=== PATIENT | female | born 1980 | race Two or more races ===

== ENCOUNTER 2025-04-07 17:51 | Emergency (ER) | payer MEDICAID, SELFPAY ==
[2025-04-07 18:04] VITALS: BP 156/90; PULSE 77; RESP 18; TEMP 36.8; O2SAT 99; BMI 21.9
--- NOTE | 2025-04-07 18:25 | EKG_ITS ---
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
--- NOTE | 2025-04-07 18:53 | XR_ITS ---
EXAMINATION: PA chest single view TECHNIQUE: Upright PA chest single view Date and time: April 07, 2025, 1944 hours INDICATIONS: Shortness of breath and syncopal episode today. FINDINGS: Normal heart size. Lungs are clear. Osseous structures are intact IMPRESSION: No active disease
--- NOTE | 2025-04-07 18:56 | EDNOTE_ITS ---
ED SOB =RME/HPI General Chief Complaint: Shortness of Breath/Dyspnea Stated Complaint: SOB, FELT FAINT EARLIER, HANDS TINGLING Time Seen by Provider: 04/07/25 18:53 Arrival date/time: 04/07/25 17:51 44F with history of unknown heart valve prolapse (does not see cards regularly or had any interventions) presents to ED with several episodes today of intermittent SOB, lightheadedness and bilateral hands tingling. Patient denies URI symptoms and anxiety/drug use. Limitations: no limitations Related Data Previous Rx's ?Medication ?Instructions ?Recorded carisoprodol 350 mg tablet 350 mg PO TID PRN MUSCLE SP ASMS 09/07/16 #15 tabs ibuprofen 600 mg tablet 600 mg PO Q6HR PRN PAIN #40 tabs 09/07/16 amoxicillin 875 mg-potassium 1 tab PO Q12H #14 tabs clavulanate 125 mg tablet (Augmentin) rizatriptan 10 mg tablet (Maxalt) 10 mg PO Q2H PRN cecile gabriella headache 04/16/21 #20 tabs Allergies Allergy/AdvReac Type Severity Reaction Status Date / Time No Known Allergies Allergy Verified 04/07/25 17:53 Review of Systems Review of Systems Systems Reviewed: All systems reviewed, normal except as documented ENT Ears, Nose, Mouth, and Throat: Reports as per HPI and Reports other (lightheadedness) Cardiovascular Cardiovascular: Reports dyspnea Respiratory Respiratory: Reports as per HPI and Reports dyspnea Musculoskeletal Musculoskeletal: Reports tingling Neurologic Neurologic: Reports as per HPI and Reports tingling Past Medical History Past Medical History OTHER HISTORY: Negative Blood Transfusions Social History SMOKING STATUS: Never smoker SUBSTANCE USE: does not use ED Exam General Limitations: Present no limitations General appearance: Present alert and in no apparent distress Head Head exam: Present atraumatic Eye Eye exam: Present normal appearance and EOMI Neck Neck exam: Present normal inspection, full ROM and trachea midline Chest Chest inspection: Present normal inspection and symmetric chest wall rise Respiratory Respiratory exam: Present normal lung sounds bilaterally Cardiovascular Cardiovascular exam: Present regular rate, normal rhythm and normal heart sounds Neurological Exam Neurological exam: Present alert and oriented X3 Psychiatric Psychiatric exam: Present normal affect and normal mood Skin Skin exam: Present warm, dry, intact and normal color Course Quality Measures none Orders Category Date Time Status EKG (ED ONLY) *Do not use* NOW Care 04/07/25 18:25 Completed EKG (ED Only) Stat Exams 04/07/25 18:25 Draft XR chest 1V portable Stat Exams 04/07/25 18:53 Completed B-Type Natriuretic Peptide Stat Lab 04/07/25 19:04 Completed CBC Stat Lab 04/07/25 19:04 Completed Comprehensive Metabolic Panel Stat Lab 04/07/25 19:04 Completed D-Dimer Stat Lab 04/07/25 19:04 Completed Drug Screen,Urine Stat Lab 04/07/25 19:04 Completed HCG Qualitative,Urine Stat Lab 04/07/25 19:04 Completed Troponin I Stat Lab 04/07/25 19:04 Completed Diazepam [Valium] Med 04/07/25 18:53 Discontinued 5 mg PO X1 ONE Vital Signs Vital signs: Vital Signs Temperature 98.3 F 04/07/25 18:04 Pulse Rate 77 04/07/25 18:04 Respiratory Rate 18 04/07/25 18:04 Blood Pressure 156/90 H 04/07/25 18:04 Pulse Oximetry (%) 99 04/07/25 18:04 Oxygen Delivery Method Room Air 04/07/25 18:04 O2 at 99% on RA and WNLs Shortness of Breath / Dyspnea MDM Narrative MDM Narrative:: 44F with history of unknown heart valve prolapse (does not see cards regularly or had any interventions) presents to ED with several episodes today of intermittent SOB, lightheadedness and bilateral hands tingling. Patient denies URI symptoms and anxiety/drug use. Physical exam reveals normal EOM. Speech normal. Gait normal. Normal WOB with clear lungs. RRR. Patient is afebrile, calm, and alert. EKG is NSR. CXR unremarkable. No leukocytosis or anemia. CMP unremarkable. Trop, D-dimer, and BNP normal. HCG/tox screen neg. Valium improved symptoms. Patient data External records reviewed:: [facility] previous records Clinical information provided by:: patient Social determinants that could affect healthcare access:: none Patient has the following chronic illnesses:: unknown heart valve prolapse How is presenting disease/condition affected by chronic disease/condition?: exacerbated by Evaluation data The following diagnostics were reviewed and interpreted by me:: lab results, radiology exam(s) and EKG tracing(s) Lab and/or radiology exams considered but not ordered:: ordered Interpretation Summary: above Medications / Prescriptions Medications or Prescriptions considered but not ordered:: ordered Medication administrations:: Medication Administration History Discontinued Medications Diazepam (Diazepam 5 Mg Tablet) 5 mg PO X1 ONE Stop: 04/07/25 18:54 Last Admin: 04/07/25 19:03 Dose: 5 mg Documented By: MILI elaine Consultations Consultation(s) initiated? (list below): No Diagnosis Shortness of Breath Differential Diagnosis: acute exacerbation of chronic obstructive airways disease, congestive heart failure, community acquired pneumonia, asthma with exacerbation, pulmonary embolism and other (anxiety, anemia, dyspnea) Most likely diagnosis given after review of the tests above:: anxiety and dyspnea Admission Indicated Admission indicated?: not indicated Admission Request Was there a request for admission?: No Disposition Plan Disposition Plan: Discharge Discharge Attestation Discharge Attestation: The patient and all family members were given an opportunity to ask questions and understood the discharge instructions. Discharge instructions specifically effects, indications for sooner follow up or return to the emergency department, and the expected course of current diagnosis. Patient condition: Stable Discharge Plan Plan Patient Disposition: HOME (Self Care) Discharge Disposition comment: Stable Prescriptions/Referrals Prescriptions/Med Rec: No Action carisoprodol 350 MG tablet 350 mg PO TID PRN (Reason: MUSCLE SPASMS) Qty: 15 0RF ibuprofen 600 MG tablet 600 mg PO Q6HR PRN (Reason: PAIN) Qty: 40 0RF rizatriptan [Maxalt] 10 mg tablet 10 mg PO Q2H PRN (Reason: migraine headache) Qty: 20 0RF Rx Instructions: do not exceed 3 doses per 24 hrs amoxicillin-pot clavulanate [Augmentin] 875-125 mg tablet 1 tab PO Q12H Qty: 14 0RF Referrals: Rickey Villegas MD [Primary Care Provider, Family Practice] - In 1 week Problem List Clinical Impression: Dyspnea, Anxiety Patient/Caregiver Discharge Instructions Education Materials: Your Body's Response to Anxiety, ED Shortness of Breath (Dyspnea) Additional Instructions: Please follow-up with PCP within 24-48 hours and return immediately if symptoms worsen. Print Language: Sinhala Stand Alone Forms: Patient Portal Info Letter MIKO/BOOGIE Supervising Physician MIKO/BOOGIE Supervising Physician: Dr. Salinas
[2025-04-07] MEDS: DIAZEPAM 5 MG TABLET PO (19:03)
[2025-04-07 19:13] LABS: Basophils # (Auto) 0.0 Thou/mm3 (0.0-0.2); Basophils % (Auto) 1 % (0-2.5); Eosinophils # (Auto) 0.3 Thou/mm3 (0.0-0.5); Eosinophils % (Auto) 3 % (0-10); Hematocrit 40.0 % (36.0-46.0); Hemoglobin 12.7 g/dL (12.0-16.0); Immature Granulocytes Auto 0.01 Thou/mm3 (0.00-0.00); Lymphocytes # (Auto) 2.7 Thou/mm3 (1.0-4.8); Lymphocytes % (Auto) 35 % (10-50); Mean Corpuscular HGB Conc 31.8 g/dl (31.0-37.0); Mean Corpuscular Hemoglobin 26.4 pg (25.0-35.0); Mean Corpuscular Volume 83 fL (80-100); Monocytes # (Auto) 0.9 Thou/mm3 (0.0-0.8); Monocytes % (Auto) 11 % (0-12); Neutrophils # (Auto) 3.9 Thou/mm3 (1.8-7.7); Neutrophils % (Auto) 50 % (37-80); Nucleated Red Blood Cell # 0.00 Thou/mm3 (0.00-0.00); Nucleated Red Blood Cell % 0 /100 WBC (0); Platelet Count 304 Thou/mm3 (140-440); RDW Standard Deviation 47.2 fL (36.4-46.3); Red Blood Count 4.81 Miln/mm3 (4.00-5.20); White Blood Count 7.8 Thou/mm3 (3.6-11.0)
[2025-04-07 19:20] LABS: HCG Qualitative,Urine Negative
[2025-04-07 19:27] LABS: Amphetamine/Methamp Scrn,U Negative (Negative); Barbiturate Screen,Urine Negative (Negative); Benzodiazepines Screen,Urine Negative (Negative); Benzoylecgonine Screen, Ur Negative (Negative); Fentanyl Screen,Urine Negative (Negative); Opiate Screen,Urine Negative (Negative); THC Screen,Urine Negative (Negative)
[2025-04-07 19:31] LABS: Alanine Aminotransferase 13 U/L (10-49); Albumin, Serum 5.1 gm/dL (3.5-5.0); Albumin/Globulin Ratio 1.7 (1.2-2.2); Alkaline Phosphatase 80 U/L (46-116); Anion Gap 9 (7-16); Aspartate Amino Transferase 18 U/L (0-34); B-Type Natriuretic Peptide < 20 pg/mL (0-100); BUN/Creatinine Ratio 13 Ratio (12-20); Bilirubin,Total 0.2 mg/dL (0.3-1.2); Blood Urea Nitrogen 9 mg/dL (9-23); Calcium 10.3 mg/dL (8.3-10.6); Calcium (Corrected) 10.3 mg/dL (8.5-10.1); Carbon Dioxide 23.1 mMol/L (20.0-31.0); Chloride 107 mMol/L (98-107); Creatinine (Component) 0.7 mg/dL (0.6-1.3); Estimated Creatinine Clearance 101.8 mL/min (>60); Globulin 3.0 gm/dL (2.3-3.5); Glucose 85 mg/dL (74-106); Osmolality,Calculated 275 (275-295); Potassium 4.0 mMol/L (3.4-5.1); Sodium 139 mMol/L (136-145); Total Protein 8.1 gm/dL (5.7-8.2); Troponin I < 0.002 ng/mL (0.0-0.045); eGFR > 60 See Note
[2025-04-07 19:33] LABS: D-Dimer < 250 ng/mL (<600)
[2025-04-07 21:00] VITALS: BP 153/99; PULSE 71; RESP 17; TEMP 36.8; O2SAT 100
== END 2025-04-07 21:02 | disposition home or self-care (01) ==
PROVIDERS: Physician Assistant; Emergency Provider Emergency Medicine; PCP Family Medicine
DX: F41.9 Anxiety disorder, unspecified (principal)
CPT/HCPCS: 36415; 71045; 80053; 80307; 81025; 83880; 84484; 85025; 85379; 93005; 99283; A9270